=== PATIENT | female | born 1995 | race Two or more races ===

== ENCOUNTER → 2019-05-27 | Emergency (ER) | payer OTHER | END | disposition left against medical advice (07) | LOC: FER 18:10 | DX: Z53.21 Procedure and treatment not carried out due to patient leaving prior to being seen by health care provider (principal) ==

== ENCOUNTER 2020-10-15 13:59 | Emergency (ER) | payer OTHER ==
[2020-10-15 14:03] VITALS: BP 133/77; PULSE 68; TEMP 98.6; BMI 21.9
[2020-10-15] MEDS ORDERED: PYRIDOXINE HCL (B-6) 100 MG TABLET PO ONE (14:28)
[2020-10-15 15:11] LABS: EPITHELIAL CELLS MANY /hpf
[2020-10-15 15:12] LABS: URINE MUCUS 2+
== END 2020-10-15 16:35 | disposition home or self-care (01) ==
LOC: FER 13:59
DX: R11.0 Nausea (principal)
CPT/HCPCS: 36415; 76817-TC; 81003; 81015; 84702; 87086; 99284-25